=== PATIENT | male | born 1985 | race Caucasian/White ===

== ENCOUNTER 2020-12-15 08:28 | Day surgery (SDC) | payer OTHER ==
[~2020-12-15] VITALS: Ht 175.3 cm; Wt 85.3 kg
[~2020-12-15 08:28] MED LIST: DICY10CA13 PO; NS 1,000 ML IV ONE
[2020-12-15] MEDS ORDERED: LIDOCAINE 2% 100MG/5ML SDV (FOR ANES.) As Ordered ONE (09:01)
[2020-12-15] MEDS ORDERED: propofoL 200 MG/20 ML VIAL As Ordered ONE (09:01)
--- NOTE | 2020-12-15 10:01 | ROOR ---
Patient Name: Lloyd Jackson Procedure Date: 12/15/2020 9:41 AM Date of : 1985 Age: 35 Room: [facility] Gender: Male Note Status: Finalized Procedure: Total Colonoscopy to Cecum Indications: Lower abdominal pain Providers: Rolan Caruso MD Referring MD: MAR PERES MD Requesting Provider: Medicines: Monitored Anesthesia Care Complications: No immediate complications. Procedure: Pre-Anesthesia Assessment: - The heart rate, respiratory rate, oxygen saturations, blood pressure, adequacy of pulmonary ventilation, and response to care were monitored throughout the procedure. The Colonoscope was introduced through the anus and advanced to the cecum, identified by appendiceal orifice and ileocecal valve. The colonoscopy was performed without difficulty. The patient tolerated the procedure well. The quality of the bowel preparation was excellent. Findings: The perianal and digital rectal examinations were normal. Non-bleeding internal hemorrhoids were found during retroflexion. The hemorrhoids were small and Grade I (internal hemorrhoids that do not prolapse). No other significant abnormalities were identified in a careful examination of the remainder of the colon. The exam was otherwise without abnormality. Impression: - Non-bleeding internal hemorrhoids. - The examination was otherwise normal. - No specimens collected. - The exam was otherwise normal to the cecum. Recommendation: - Patient has a contact number available for emergencies. The signs and symptoms of potential delayed complications were discussed with the patient. Return to normal activities tomorrow. Written discharge instructions were provided to the patient. - High fiber diet. - Discharge patient to home. - Continue present medications. - Repeat colonoscopy at age 50 for screening purposes. - Return to referring physician. - The findings and recommendations were discussed with the patient. Procedure Code(s): --- Professional --- 34723, Colonoscopy, flexible; diagnostic, including collection of specimen(s) by brushing or washing, when performed (separate procedure) Diagnosis Code(s): --- Professional --- K64.0, First degree hemorrhoids R10.30, Lower abdominal pain, unspecified CPT copyright 2019 [employer]. All rights reserved. The codes documented in this report are preliminary and upon skiver operator review may be revised to meet current compliance requirements. Rolan Caruso MD Rolan Caruso MD 12/15/2020 10:00:43 AM Electronically signed by Rolan Caruso MD Number of Addenda: 0 Note Initiated On: 12/15/2020 9:41 AM Estimated Blood Loss: Estimated blood loss: none.
[2020-12-15 10:25] VITALS: BP 119/73
== END 2020-12-15 10:30 | disposition home or self-care (01) ==
LOC: M OPP 08:28
PROVIDERS: ATTEND Internal Medicine Gastroenterology
DX: R10.30 Lower abdominal pain, unspecified (principal); K62.1 Rectal polyp; K64.0 First degree hemorrhoids; K52.9 Noninfective gastroenteritis and colitis, unspecified; G43.909 Migraine, unspecified, not intractable, without status migrainosus

== ENCOUNTER → 2020-12-16 | Outpatient (CLI) | payer OTHER ==
[~2020-12-16] MED LIST changes: +GASTROGRAFIN SOLUTION 30ML (Q9963) As Ordered ONE; +ISOVUE-370 76% 100ML VIAL As Ordered ONE; -NS 1,000 ML IV ONE
--- NOTE | 2020-12-16 16:07 | REP ---
INDICATION: COLITIS, LOWER ABD PAIN. COMPARISON: None. TECHNIQUE: Oral Gastrografin mixture for [address] bowel contrast protocol. Subsequent bolus 100 mL Isovue 370 scanning through the abdomen and pelvis with coronal and sagittal reconstructions. FINDINGS: CT abdomen: The lung bases are clear. Heart is not enlarged there is no pericardial thickening or effusion. No hiatal hernia. The liver, spleen, gallbladder, pancreas, adrenal glands and the kidneys were unremarkable. Oral contrast fills the stomach which shows no wall thickening or mass. Small bowel loops are contrast or fluid-filled without dilatation, wall thickening or mesenteric edema adjacent. Stool fills the colon without signs of colitis or diverticulitis within the abdomen proper. Lung window review of all CT slices shows no perforation or free air in the abdomen or pelvis. No generalized ascites. The aorta is without aneurysm or dissection and I see no periaortic, retroperitoneal or mesenteric pathologic sized lymph adenopathy. Bone windows show lumbar and lower thoracic vertebral levels, their posterior elements and visualized ribs to all be normal. CT pelvis: The distal left colon, sigmoid and rectum are without sign of colitis, diverticulitis or other abnormality. There is no colonic mass. The appendix is seen and normal. Small bowel loops are contrast filled without bowel wall thickening in the distal jejunum or proximal ileum. However, the terminal ileum does show some slight wall thickening distally and a could not exclude a degree of terminal ileitis. There is no inflammatory change in the fat adjacent to the terminal ileum nor the cecum. No pericecal adenopathy. No ventral or inguinal hernia nor pathologic sized inguinal adenopathy. The bone windows of the pelvis show that the sacrum, pelvis and hips were unremarkable. IMPRESSION: 1. There is subtle wall thickening of the final few cm of the terminal ileum as it courses toward the ileocecal valve. No inflammatory changes in the adjacent fat or mesenteric adenopathy near the cecum. However this certainly could represent very early inflammatory bowel disease/ terminal ileitis. The nearby appendix is normal and the cecum itself shows no wall thickening or mass. 2. The colon from cecum to rectosigmoid shows no colitis, diverticulitis, stricture or mass. No abdominal or pelvic ascites. 3. Solid organs in the upper abdomen along with gallbladder, stomach and abdominal wall are unremarkable. No ventral or inguinal hernias. No abdominopelvic adenopathy or other acute finding. <Electronically signed by Héctor Cárdenas > 12/16/20 1604
== END ==
LOC: M RAD 13:43
PROVIDERS: ATTEND Physician Assistant
DX: R10.9 Unspecified abdominal pain (principal)
CPT/HCPCS: 74177; Q9963; Q9967

== ENCOUNTER 2020-12-20 12:47 | Day surgery (SDC) | payer OTHER ==
[~2020-12-20] VITALS: Ht 175.3 cm; Wt 85.3 kg
[~2020-12-20 12:47] MED LIST changes: -GASTROGRAFIN SOLUTION 30ML (Q9963) As Ordered ONE; -ISOVUE-370 76% 100ML VIAL As Ordered ONE; +LR 1,000 ML IV ONE; +MIDAZOLAM INJ 2MG/2ML VIAL (J2250 PER 1MG) As Ordered ONE; +ceFAZolin SOD 2 GM in IV 1 EA IV ONE; +fentaNYL 100 MCG/2 ML INJECTION (J3010) As Ordered ONE; +propofoL 200 MG/20 ML VIAL As Ordered ONE
[2020-12-20] MEDS ORDERED: LIDOCAINE 1% MDV 20ML VIAL As Ordered ONE (13:15)
[2020-12-20] MEDS ORDERED: LIDOCAINE 2% 100MG/5ML SDV (FOR ANES.) As Ordered ONE (14:23)
[2020-12-20] MEDS ORDERED: propofoL 200 MG/20 ML VIAL As Ordered ONE (14:23)
--- NOTE | 2020-12-20 15:26 | RO ---
OPERATIVE NOTE DATE OF OPERATION: 12/20/2020 PRE-PROCEDURE DIAGNOSIS: Unexplained syncope. POST-PROCEDURE DIAGNOSIS: Unexplained syncope. DIAGNOSIS: Unexplained syncope. FINDINGS: Unexplained syncope. PROCEDURE PERFORMED: Implantation of a Medtronic subcutaneous cardiac rhythm monitor. SURGEON: Malcolm Monzon M.D. OIL HEATERMAN: None. ANESTHESIA: Lidocaine 1% local/monitored anesthetic care. SPECIMENS: None. ESTIMATED BLOOD LOSS: Less than 1 mL. BLOOD PRODUCTS: No blood products were placed. DRAINS: None. COMPLICATIONS: None. PROCEDURE DESCRIPTION: The patient was prepped and draped over the left anterior chest and sternum. Lidocaine 1% was used for local anesthetic. An incision was made about 1 cm in length using a #15 scalpel blade approximately between the third and fourth interspaces, 1 inch lateral to the left parasternal border. The guide insertion tool was then placed into the subcutaneous tissue parallel to the chest wall in a left lateral-caudal direction. The insertion tool was rotated 180 degrees. The punch was then placed into the insertion tool and used to advance the cardiac rhythm monitor into the subcutaneous tissue. The punch was removed followed by removal of the insertion tool. The incision was approximated temporarily with a 4-0 Biosyn suture applied subcuticular with the free margins protruding 1 cm from either end of the incision line on both sides. Three layers of Dermabond were applied. The Biosyn suture was then pulled through the incision line and removed entirely. The patient tolerated the procedure well without any immediate complications. The cardiac rhythm monitor implanted was a Medtronic LINQ II, model LNQ22 with serial number [id number]. The initial R-wave amplitude measured 0.90 mV.
[2020-12-20 15:40] VITALS: BP 125/85
== END 2020-12-20 15:40 | disposition home or self-care (01) ==
LOC: M SDC 12:47
PROVIDERS: ATTEND Internal Medicine Cardiovascular Disease
DX: R55 Syncope and collapse (principal)
CPT/HCPCS: 33285; C1764; J0690; J2250; J3010

== ENCOUNTER 2021-01-10 07:04 | Emergency (ER) | payer OTHER ==
[~2021-01-10] VITALS: Ht 175.3 cm; Wt 88.0 kg
[~2021-01-10 07:04] MED LIST changes: -LR 1,000 ML IV ONE; -MIDAZOLAM INJ 2MG/2ML VIAL (J2250 PER 1MG) As Ordered ONE; -ceFAZolin SOD 2 GM in IV 1 EA IV ONE; -fentaNYL 100 MCG/2 ML INJECTION (J3010) As Ordered ONE; -propofoL 200 MG/20 ML VIAL As Ordered ONE
[2021-01-10] MEDS ORDERED: DICYCLOMINE 10 MG CAP PO STA (07:36)
[2021-01-10 07:59] LABS: BASO # 0.1 10^3/uL (0.0-0.2); BASO % 0.7 % (0.0-1.0); EOS # 0.2 10^3/uL (0.0-0.5); EOS % 3.2 % (0.0-3.0); HEMATOCRIT 48.3 % (42.0-52.0); HEMOGLOBIN 16.2 g/dl (13.5-17.5); LYMPH # 1.2 10^3/uL (1.5-5.0); LYMPH % 17.5 % (24.0-44.0); MEAN CORPUSCULAR HEMOGLOBIN 31.2 pg (27.0-33.0); MEAN CORPUSCULAR HGB CONC 33.5 g/dl (32.0-36.5); MEAN CORPUSCULAR VOLUME 92.9 fl (80.0-96.0); MONO # 0.8 10^3/uL (0.0-0.8); MONO % 11.3 % (2.0-8.0); NEUTROPHILS # 4.7 10^3/uL (1.5-8.5); NEUTROPHILS % 67.2 % (36.0-66.0); PLATELET COUNT, AUTOMATED 239 10^3/uL (150-450); WHITE BLOOD COUNT 6.9 10^3/uL (4.0-10.0)
[2021-01-10 08:30] LABS: BILIRUBIN,DIRECT 0.2 MG/DL (0.0-0.2); BILIRUBIN,TOTAL 0.6 MG/DL (0.2-1.0); TOTAL PROTEIN 7.4 GM/DL (6.4-8.2)
[2021-01-10 09:07] VITALS: BP 130/80
[2021-01-10] MEDS ORDERED: DICY20TA11 PO (09:08)
== END 2021-01-10 09:52 | disposition home or self-care (01) ==
LOC: M ED 07:04
DX: R10.32 Left lower quadrant pain (principal); G89.29 Other chronic pain; R11.0 Nausea; Z86.010 Personal history of colon polyps

== ENCOUNTER → 2021-04-27 | Outpatient (CLI) | payer OTHER ==
[~2021-04-27] MED LIST changes: +DICY20TA11 PO
--- NOTE | 2021-04-28 16:21 | SLEEPCENT ---
DATE: 04/27/2021 ORDERED BY: Tracey Melton Nocturnal polysomnography was performed for evaluation of sleep physiology in this patient with a history of excessive somnolence, morning headaches, and nonrestorative sleep. There was 8 hours and 36 minutes of data reviewed. There was 482.5 minutes of sleep identified. Sleep latency was normal at 12 minutes. REM latency was delayed at 262 minutes. Sleep architecture showed poor progression. There were two REM cycles appreciated. Overall sleep efficiency was 94.3%. The electrocardiogram showed a sinus rhythm with an average heart rate of 50 beats per minute. Rate ranged 40-70. EEG showed some mild alpha intrusion into non-REM stages. No focal events were identified, and there were normal waveforms for wake and sleep. There were 34 respiratory events identified of 10 seconds in duration or greater for an apnea-hypopnea index of 5.2. The events were obstructive, not related to sleep stage, more frequent but not exclusive to the supine position. Arousals from respiratory events occurred 1.9 times per hour. Oxygen desaturations were on occasion seen below 90%. There was some activity noted in the limb leads. Limb movement arousal index was only 2. IMPRESSION: Obstructive sleep apnea syndrome (G47.33). Apnea-hypopnea index 5.2. RECOMMENDATION: given the patient's symptoms, referral back to the sleep disorder center for pressure therapy is recommended. In the interim, alcohol and sedative avoidance should be practiced and caution exercised during the operation of motor vehicles.
== END ==
LOC: M SLEEP 20:00
PROVIDERS: ATTEND Nurse Practitioner Family
DX: G47.33 Obstructive sleep apnea (adult) (pediatric) (principal)

== ENCOUNTER → 2021-05-26 | Outpatient (CLI) | payer OTHER ==
--- NOTE | 2021-05-30 15:55 | SLEEPCENT ---
DATE: 05/26/2021 NOCTURNAL POLYSOMNOGRAPHY CPAP TITRATION ORDERED BY: MARTHA Bernard Nocturnal polysomnography was performed for the titration of pressure therapy in this patient with a history of obstructive sleep apnea syndrome. For testing a ResMed Quattro full face mask of small size was used, 4 cm of water pressure were applied to the circuit, and the lights were extinguished. Seven hours and 58 minutes of data were reviewed. There were 443 minutes of sleep identified. Sleep latency was short at 4 minutes. REM sleep was delayed at 219 minutes. Sleep architecture improved with optimal pressure therapy, and there were three REM cycles noted. Overall sleep efficiency was 93.7%. The electrocardiogram showed a sinus rhythm with an average heart rate of 54 beats per minute. EEG showed normal waveforms for wake and sleep. Respiratory events were fully palliated with CPAP at a pressure of 10 with some minor limb activity on this occasion. The limb movement arousal index was 3.4. IMPRESSIONS: Obstructive sleep apnea syndrome (G47.33). RECOMMENDATION: Nightly use of pressure therapy 10 cm of water. cc: Javier Junior,
== END ==
LOC: M SLEEP 20:00
PROVIDERS: ATTEND Nurse Practitioner Family
DX: G47.33 Obstructive sleep apnea (adult) (pediatric) (principal)